=== PATIENT | female | born 1945 ===

== ENCOUNTER 2018-06-11 13:42 | Emergency (ER) | payer MEDICARE, MEDICAID ==
[2018-06-11 14:14] VITALS: RESP 20
[2018-06-11] MEDS ORDERED: Lidocaine 5% Patch TD STA (14:42)
[2018-06-11] MEDS ORDERED: Lidocaine 5% Patch TD ONE (15:04)
--- NOTE | 2018-06-11 15:23 | C.PDOC ---
History Of Present Illness 72 year old female presents to ED for complaints of left sided back pain that began 10 days ago. Patient describes pain as dull, aching, non-radiating, and worse with cough and movement. Patient states she went to the clinic and was prescribed ibuprofen and flexeril with some improvement. Denies urinary symptoms, numbness, or weakness. Time Seen by Provider: 06/11/18 14:27 Chief Complaint (Nursing): Back Pain History Per: Patient History/Exam Limitations: no limitations Onset/Duration Of Symptoms: Days (10) Current Symptoms Are (Timing): Still Present Quality Of Discomfort: Dull, Aching, "Pain" Previous Symptoms: Back Pain Associated Symptoms: None Exacerbating Factor(s): Movement, Other (Cough ) Recent travel outside of the [place]: No Past Medical History Reviewed: Historical Data, Nursing Documentation, Vital Signs Vital Signs: Last Vital Signs Temp 98.2 F 06/11/18 14:12 Pulse 75 06/11/18 14:12 Resp 20 06/11/18 14:12 BP 118/71 06/11/18 14:12 Pulse Ox 96 06/11/18 14:12 - Medical History PMH: No Chronic Diseases Surgical History: No Surg Hx Family History: States: No Known Family Hx - Social History Hx Alcohol Use: No Hx Substance Use: No Review Of Systems Constitutional: Negative for: Fever, Chills Gastrointestinal: Negative for: Nausea, Vomiting, Diarrhea Genitourinary: Negative for: Dysuria, Frequency Musculoskeletal: Positive for: Back Pain (Left sided ) Skin: Negative for: Rash Neurological: Negative for: Weakness, Numbness Physical Exam - Physical Exam Appears: Non-toxic, No Acute Distress Skin: Normal Color, Warm, Dry, No Rash Head: Atraumatic, Normacephalic Eye(s): bilateral: Normal Inspection, PERRL, EOMI Oral Mucosa: Moist Neck: Normal ROM, Supple Chest: Symmetrical, No Tenderness Cardiovascular: Rhythm Regular, No Murmur Respiratory: Normal Breath Sounds, No Rales, No Rhonchi, No Wheezing Gastrointestinal/Abdominal: Bowel Sounds (Active ), Soft, No Tenderness, No Distention, No Guarding Back: Other (Left paralumbar tenderness ) Extremity: Normal ROM Extremity: Bilateral: Atraumatic, Normal Color And Temperature, Normal ROM Pulses: Left Radial: Normal, Right Radial: Normal Neurological/Psych: Oriented x3, Normal Speech Gait: Steady ED Course And Treatment O2 Sat by Pulse Oximetry: 96 (RA) Pulse Ox Interpretation: Normal Medical Decision Making Medical Decision Making: Impression: Back pain Plan: * Lidoderm * Toradol * Tylenol * Valium * Urinalysis Progress: UA was negative. Patient given meds for treatment. On re-eval, she was sitting comfortably in no distress. She has no vertebral tenderness. She was ambulatory without discomfort. Patient was stable for discharge. Disposition Counseled Patient/Family Regarding: Diagnosis, Need For Followup - Disposition Referrals: [facility] [Outside] [facility] [Outside] Disposition: HOME/ ROUTINE Disposition Time: 16:00 Condition: STABLE Additional Instructions: Aplique calor al dori milla 15-20 minutos a la vez, 2 o 3 veces por da. Deidre Tylenol para el dolor Solis Motrin para el dolor cada 6-8 horas, segn sea necesario, con alimentos que no molesten el estmago. Solis relajante muscular cada 6-8 horas segn sea necesario, la precaucin puede causar somnolencia César un seguimiento con [place] mdico de cabecera o clnica en 2 a 5 saucedo para nish evaluacin adicional Regrese al departamento de emergencias en cualquier momento si los sntomas persisten o empeoran. Prescriptions: Acetaminophen [Acetaminophen Extra Strength] 500 mg PO Q8 #24 tablet Methocarbamol [Robaxin-750] 750 mg PO Q8 #24 tab Instructions: Low Back Pain (DC) Print Language: MOHAWK - POA Present On Arrival: None - Clinical Impression Clinical Impression: Low back pain - PA / [employer] / Resident Statement MD/DO has reviewed & agrees with the documentation as recorded. - Scribe Statement The provider has reviewed the documentation as recorded by the Lyndaibchantelle Nelson All medical record entries made by the Scribe were at my direction and personally dictated by me. I have reviewed the chart and agree that the record accurately reflects my personal performance of the history, physical exam, medical decision making, and the department course for this patient. I have also personally directed, reviewed, and agree with the discharge instructions and disposition.
[2018-06-11 15:36] LABS: SQUAMOUS EPITHIAL 1 /hpf (0-5); URINE BILIRUBIN NEGATIVE (NEGATIVE); URINE BLOOD 1+ (NEGATIVE); URINE CLARITY Clear (Clear); URINE COLOR Straw (YELLOW); URINE GLUCOSE (UA) NORMAL (Normal); URINE LEUKOCYTE ESTERASE 1+ Leu/uL (Negative); URINE PROTEIN NEGATIVE (NEGATIVE); URINE UROBILINOGEN NORMAL mg/dL (0.2-1.0)
[2018-06-11 16:24] VITALS: BP 109/72; PULSE 66; TEMP 98.8
[2018-06-11 17:15] VITALS: O2SAT 96
== END 2018-06-11 16:24 | disposition home or self-care (01) ==
LOC: C.ER 13:42
DX: M54.5 Low back pain (principal)
CPT/HCPCS: 81001; 96372; 99285; J1885